=== PATIENT | female | born 1980 | race Caucasian/White ===

== ENCOUNTER 2017-04-25 11:24 | Emergency (ER) | payer MEDICAID, OTHER ==
[~2017-04-25] VITALS: Ht 162.6 cm; Wt 82.1 kg
[~2017-04-25 11:24] MED LIST: AMOX1TAB12 PO; CIPR10DR LEFT EAR
[2017-04-25 11:34] VITALS: BP 128/85
[2017-04-25] MEDS ORDERED: BACITRACIN ZINC OINT 500U/GM, 0.9 GM ONE (12:04)
[2017-04-25] MEDS ORDERED: HYDROcodone/APAP 5/325 TABLET ONE (12:10)
[2017-04-25] MEDS ORDERED: HYDROcodone/APAP 5/325 TABLET PO ONE (12:30)
== END 2017-04-25 13:20 | disposition home or self-care (01) ==
LOC: ED 13:00
DX: S61.452A Open bite of left hand, initial encounter (principal); S61.451A Open bite of right hand, initial encounter; W54.0XXA Bitten by dog, initial encounter; Y93.89 Activity, other specified; Y92.89 Other specified places as the place of occurrence of the external cause; Y99.8 Other external cause status
CPT/HCPCS: 29125; 99284

== ENCOUNTER 2017-05-27 18:36 | Emergency (ER) | payer BC, MEDICAID ==
[~2017-05-27] VITALS: Ht 162.6 cm; Wt 82.7 kg
[2017-05-27 18:38] VITALS: BP 145/96
[2017-05-27] MEDS ORDERED: OXYcodone/APAP 5/325MG TABLET PO ONE (19:30)
[2017-05-27] MEDS ORDERED: LIDOCAINE-MPF 1%, 5ML INFIL ONE (19:30)
[2017-05-27] MEDS ORDERED: OXYcodone/APAP 5/325MG TABLET ONE (19:35)
== END 2017-05-27 20:02 | disposition home or self-care (01) ==
LOC: ED 19:45
DX: L02.412 Cutaneous abscess of left axilla (principal); G89.29 Other chronic pain; Z91.013 Allergy to seafood
CPT/HCPCS: 10060; 99283

== ENCOUNTER 2017-12-31 07:52 | Emergency (ER) | payer BC, MEDICAID ==
[~2017-12-31] VITALS: Ht 160 cm; Wt 81.8 kg
[2017-12-31] MEDS ORDERED: ONDANSETRON ODT 4 MG ONE (08:56)
[2017-12-31] MEDS ORDERED: MORPHINE SULFATE 4 MG/ML, 1ML ONE (08:57)
[2017-12-31] MEDS ORDERED: SODIUM CHLORIDE FLUSH 10ML SYR IVF ONE (09:00)
[2017-12-31] MEDS ORDERED: MORPHINE SULFATE 4 MG/ML, 1ML IVPush PRN (09:00)
[2017-12-31] MEDS ORDERED: SODIUM CHLORIDE 0.9% 1,000ML IVBOLUS ONE (09:00)
[2017-12-31] MEDS ORDERED: ONDANSETRON ODT 4 MG PO ONE (09:00)
[2017-12-31 09:30] LABS: BASOPHILS # (AUTO) 0.05 x10^3/uL (0-0.1); BASOPHILS % (AUTO) 1 % (0-1); EOSINOPHILS # (AUTO) 0.29 x10^3/uL (0-0.4); EOSINOPHILS % (AUTO) 4 % (1-7); LYMPHOCYTES # (AUTO) 2.47 x10^3/uL (1-3.4); LYMPHOCYTES % (AUTO) 34 % (22-44); MD NO; MEAN CORPUSCULAR HEMOGLOBIN 31.4 pg (27.0-34.8); MEAN CORPUSCULAR HGB CONC 33.5 g/dL (32.4-35.8); MEAN CORPUSCULAR VOLUME 93.9 fL (80-100); MEAN PLATELET VOLUME 9.7 fL (7.4-10.4); MONOCYTES # (AUTO) 0.62 x10^3/uL (0.2-0.8); MONOCYTES % (AUTO) 8 % (2-9); NEUTROPHILS # (AUTO) 3.96 x10^3/uL (1.8-6.8); NEUTROPHILS % (AUTO) 54 % (42-75); PLATELET COUNT 272 x10^3/uL (130-400); RED BLOOD COUNT 4.67 x10^6/uL (3.82-5.3); RED CELL DISTRIBUTION WIDTH 13.1 % (9.6-15.2)
[2017-12-31 09:31] LABS: INTERNATIONAL NORMALIZED RATIO 0.92 (0.93-1.1); PROTHROMBIN TIME 9.5 Seconds (9.6-11.5)
[2017-12-31 09:34] LABS: ALANINE AMINOTRANSFERASE 26 U/L (12-78); ALBUMIN 3.6 g/dL (3.4-5.0); ANION GAP 7 mmol/L (5-15); CALCIUM 8.6 mg/dL (8.5-10.1); CHLORIDE 106 mmol/L (98-107); CREATININE 0.68 mg/dL (0.55-1.02)
[2017-12-31 09:38] LABS: ALKALINE PHOSPHATASE 62 U/L (45-117); BILIRUBIN,TOTAL 0.3 mg/dL (0.2-1.0); TOTAL PROTEIN 8.3 g/dL (6.4-8.2)
[2017-12-31] MEDS ORDERED: OMNIPAQUE 350 MG/ML, 100ML BOTTLE ONE (10:33)
[2017-12-31 10:51] LABS: MICROSCOPIC INDICATED
[2017-12-31 10:56] LABS: CULTURE INDICATED? YES
[2017-12-31 11:37] VITALS: BP 125/83
== END 2017-12-31 11:46 | disposition home or self-care (01) ==
LOC: ED 11:35
DX: S16.1XXA Strain of muscle, fascia and tendon at neck level, initial encounter (principal); S39.012A Strain of muscle, fascia and tendon of lower back, initial encounter; S20.212A Contusion of left front wall of thorax, initial encounter; S20.211A Contusion of right front wall of thorax, initial encounter; S30.1XXA Contusion of abdominal wall, initial encounter; R11.2 Nausea with vomiting, unspecified; V49.49XA Driver injured in collision with other motor vehicles in traffic accident, initial encounter; Y93.89 Activity, other specified; Y92.89 Other specified places as the place of occurrence of the external cause; Y99.8 Other external cause status
CPT/HCPCS: 36415; 70450; 71260; 72125; 74177; 80053; 81001; 84703; 85025; 85610; 87086; 93005; 96361; 96374; 99285; J7030; Q0162; Q9967

== ENCOUNTER 2018-03-06 21:04 | Emergency (ER) | payer BC ==
[~2018-03-06] VITALS: Ht 160 cm; Wt 81.6 kg
[2018-03-06 21:07] VITALS: BP 112/76
[2018-03-06] MEDS ORDERED: ONDANSETRON ODT 4 MG ONE (21:27)
[2018-03-06] MEDS ORDERED: IBUPROFEN 200 MG TABLET ONE (21:27)
[2018-03-06] MEDS ORDERED: ONDANSETRON ODT 4 MG PO ONE (21:30)
[2018-03-06] MEDS ORDERED: OSELTAMIVIR 75 MG CAPSULE PO ONE (21:30)
[2018-03-06] MEDS ORDERED: IBUPROFEN 200 MG TABLET PO ONE (21:30)
== END 2018-03-06 23:17 | disposition home or self-care (01) ==
LOC: ED 23:00
DX: J09.X2 Influenza due to identified novel influenza A virus with other respiratory manifestations (principal); G89.29 Other chronic pain
CPT/HCPCS: 99284; Q0162

== ENCOUNTER 2018-09-26 22:21 | Emergency (ER) | payer BC ==
[~2018-09-26] VITALS: Ht 162.6 cm; Wt 82.7 kg
--- NOTE | 2018-09-26 22:49 | NUR ---
LUE REDNESS/SWELLING X LAST NIGHT. AREA WARM TO TOUCH & TENDER. PT DENIES FEVER/DRAINAGE. MONITORS APPLIED, SIDERAILS UP X2, CALL LIGHT WITHIN REACH
[2018-09-26] MEDS ORDERED: MORPHINE SULFATE 4 MG/ML, 1ML IVPush PRN (23:30)
--- NOTE | 2018-09-26 23:31 | NUR ---
IV SITE STARTED, LABS DRAWN
[2018-09-26] MEDS ORDERED: MORPHINE SULFATE 4 MG/ML, 1ML ONE (23:33)
--- NOTE | 2018-09-26 23:35 | NUR ---
PT MEDICATED PER MAR
[2018-09-27] MEDS ORDERED: LIDOCAINE-MPF 1%, 5ML ONE
--- NOTE | 2018-09-27 00:07 | NUR ---
PA AT BEDSIDE FOR LEFT ELBOW ASPIRATE
[2018-09-27 00:09] LABS: BASOPHILS # (AUTO) 0.05 x10^3/uL (0-0.1); BASOPHILS % (AUTO) 1 % (0-1); EOSINOPHILS # (AUTO) 0.54 x10^3/uL (0-0.4); EOSINOPHILS % (AUTO) 5 % (1-7); LYMPHOCYTES # (AUTO) 3.22 x10^3/uL (1-3.4); LYMPHOCYTES % (AUTO) 31 % (22-44); MD NO; MEAN CORPUSCULAR HEMOGLOBIN 31.5 pg (27.0-34.8); MEAN CORPUSCULAR VOLUME 95.6 fL (80-100); MEAN PLATELET VOLUME 10.1 fL (7.4-10.4); MONOCYTES % (AUTO) 7 % (2-9); NEUTROPHILS # (AUTO) 6.02 x10^3/uL (1.8-6.8); NEUTROPHILS % (AUTO) 57 % (42-75); PLATELET COUNT 244 x10^3/uL (130-400); RED BLOOD COUNT 4.18 x10^6/uL (3.82-5.3); RED CELL DISTRIBUTION WIDTH 12.8 % (9.6-15.2)
[2018-09-27] MEDS ORDERED: ONDANSETRON 2MG/ML, 2ML ONE (00:16)
[2018-09-27 00:17] LABS: ALBUMIN 3.3 g/dL (3.4-5.0); ANION GAP 7 mmol/L (5-15); CALCIUM 8.5 mg/dL (8.5-10.1); CHLORIDE 106 mmol/L (98-107)
[2018-09-27 00:25] LABS: CREATININE 0.86 mg/dL (0.55-1.02)
[2018-09-27] MEDS ORDERED: CEPHALEXIN 500 MG CAPSULE ONE (00:49)
[2018-09-27] MEDS ORDERED: SULFAMETH./TRIMETHOPRIM DS 800MG/160MG TABLET ONE (00:50)
[2018-09-27 00:52] VITALS: BP 139/81
[2018-09-27 00:57] LABS: HCT (SEDRATE) 39.9 % (34.6-47.8)
[2018-09-27] MEDS ORDERED: SULFAMETH./TRIMETHOPRIM DS 800MG/160MG TABLET PO ONE (01:00)
[2018-09-27] MEDS ORDERED: CEPHALEXIN 500 MG CAPSULE PO ONE (01:00)
== END 2018-09-27 01:10 | disposition home or self-care (01) ==
LOC: ED 23:59
DX: L03.114 Cellulitis of left upper limb (principal)
CPT/HCPCS: 20605; 36415; 80048; 82040; 85025; 85651; 86140; 96374; 99284; J2270

== ENCOUNTER 2019-07-23 22:58 | Emergency (ER) | payer BC, MEDICAID ==
[~2019-07-23] VITALS: Ht 160 cm; Wt 74.6 kg
--- NOTE | 2019-07-23 23:37 | NUR ---
Patient presents to ER c/o cyst on right side labia x3 days. C/o fever and chills. States there is drainage. Denies vag discharge. Patient is in NAD. Respirations even and unlabored.
[2019-07-23 23:41] VITALS: BP 131/87
[2019-07-24] MEDS ORDERED: LIDOCAINE 1%, 10ML INFIL ONE
[2019-07-24] MEDS ORDERED: LIDOCAINE-MPF 1%, 5ML ONE (00:06)
--- NOTE | 2019-07-24 00:40 | NUR ---
Discharge instructions given. All questions and concerns addressed. Patient ambulatory with a steady gait. Belongings with patient.
== END 2019-07-24 00:41 ==
LOC: ED 07-24 00:35
DX: N76.4 Abscess of vulva (principal)
CPT/HCPCS: 56405; 99284

== ENCOUNTER 2019-07-26 04:16 | Emergency (ER) | payer MEDICAID ==
[~2019-07-26] VITALS: Ht 160 cm; Wt 76.1 kg
[2019-07-26 04:17] VITALS: BP 147/96
== END 2019-07-26 05:08 | disposition home or self-care (01) ==
LOC: ED 04:36
DX: N76.4 Abscess of vulva (principal)
CPT/HCPCS: 99282